=== PATIENT | male | born 1970 | race Caucasian/White ===

== ENCOUNTER 2023-04-01 21:57 | Outpatient (REF) | payer BC, SELFPAY ==
[2023-04-03 11:20] LABS: Lyme Ab w Rflx to Lyme Confirm Negative (Negative)
[2023-04-05 17:58] LABS: Anaplasma phagocytophilum Negative (Negative); B. miyamotoi PCR Negative (Negative); Babesia divergens/MO-1 Negative (Negative); Babesia duncani Negative (Negative); Babesia microti Negative (Negative); Ehrlichia chaffeensis Negative (Negative); Ehrlichia ewingii/canis Negative (Negative); Ehrlichia muris eauclairensis Negative (Negative)
== END 2023-04-01 21:58 | disposition home or self-care (01) ==
LOC: LBN 21:57
PROVIDERS: PCP Family Medicine; Visit Provider Physician Assistant Medical
DX: M25.50 Pain in unspecified joint (principal)
CPT/HCPCS: 87798; 86618

== ENCOUNTER 2023-07-02 16:14 | Outpatient (REF) | payer BC, SELFPAY ==
[2023-07-02 16:52] LABS: HCT 46.4 % (40.0-50.0); HGB 14.9 g/dL (13.5-17.5); MCHC 32.1 % (32.0-36.0); MCV 90 fL (80-95); Platelet Count 264 10^3/uL (130-400); RBC 5.13 10^6/uL (4.36-5.78); RDW 13.2 % (11.8-14.1); RDW-SD 43.8 fL; WBC 6.08 10^3/uL (4.4-10.8)
[2023-07-02 18:10] LABS: ALT 61 U/L (16-63); AST 31 U/L (15-37); Albumin 4.2 g/dL (3.4-5.0); Alkaline Phosphatase 73 U/L (46-116); Anion Gap 10.2 mmol/L (3-11); BUN 19 mg/dL (7-18); Bilirubin, Total 0.6 mg/dL (0.2-1.0); CO2 26.8 mmol/L (21.0-32.0); CREATININE 0.9 mg/dL (0.70-1.30); Calcium 9.6 mg/dL (8.5-10.1); Calculated LDL 129 mg/dL (<100); Chloride 104 mmol/L (98-107); Cholesterol 199 mg/dL (<200); Estimated GFR 102.12 (mL/min/1.73m2); Glucose 95 mg/dL (74-106); HDL Cholesterol 60 mg/dL (40-60); Potassium 4.9 mmol/L (3.5-5.1); Sodium 141 mmol/L (136-145); TSH (W/Ref FT4) 2.15 uIU/mL (0.36-3.74); Total Protein 7.8 g/dL (6.4-8.2); Triglyceride 54 mg/dL (<150)
== END 2023-07-02 16:15 | disposition home or self-care (01) ==
LOC: NCHCN 16:14
PROVIDERS: PCP Family Medicine; Visit Provider Family Medicine
DX: Z00.00 Encounter for general adult medical examination without abnormal findings (principal); E78.5 Hyperlipidemia, unspecified; R03.0 Elevated blood-pressure reading, without diagnosis of hypertension; F52.21 Male erectile disorder
CPT/HCPCS: 80053; 80061; 85027; 84443

== ENCOUNTER 2023-10-29 10:19 | Outpatient (REF) | payer BC, SELFPAY ==
[2023-10-29 15:17] LABS: Anion Gap 8.7 mmol/L (3-11); BUN 26 mg/dL (7-18); CO2 31.3 mmol/L (21.0-32.0); CREATININE 1.1 mg/dL (0.70-1.30); Calcium 10.4 mg/dL (8.5-10.1); Chloride 102 mmol/L (98-107); Estimated GFR 79.77 (mL/min/1.73m2); Glucose 128 mg/dL (74-106); Potassium 4.4 mmol/L (3.5-5.1); Sodium 142 mmol/L (136-145)
[2023-11-04 16:43] LABS: Testosterone, Free 7.73 ng/dL (4.06-15.6); Testosterone, Total 234 ng/dL (240-950)
== END 2023-10-29 10:20 | disposition home or self-care (01) ==
LOC: NCHCN 10:19
PROVIDERS: PCP Family Medicine; Visit Provider Family Medicine
DX: I10 Essential (primary) hypertension (principal); F52.21 Male erectile disorder
CPT/HCPCS: 80048; 84402; 84403

== ENCOUNTER 2024-03-03 09:24 | Outpatient (REF) | payer BC, SELFPAY ==
[2024-03-03 14:48] LABS: Abs Immature Grans 0.03 10^3/uL (0.0-0.06); Absolute Basophil Count 0.07 10^3/uL (0.0-0.2); Absolute Eosinophil Count 0.34 10^3/uL (0.0-0.7); Absolute Lymphocyte Count 2.78 10^3/uL (1.2-3.4); Absolute Monocyte Count 0.73 10^3/uL (0.1-0.8); Absolute Neutrophil Count 5.41 10^3/uL (1.2-6.7); Basophils % 0.7 %; Eosinophils % 3.6 %; HCT 47.6 % (40.0-50.0); HGB 15.9 g/dL (13.5-17.5); Immature Grans % 0.3 %; Lymphocytes % 29.7 %; MCH 29.3 pg (27.0-33.0); MCHC 33.4 % (32.0-36.0); MCV 88 fL (80-95); MPV 10.8 fL (8.0-11.0); Monocytes % 7.8 %; Neutrophils % 57.9 %; Platelet Count 259 10^3/uL (130-400); RBC 5.43 10^6/uL (4.36-5.78); RDW 12.8 % (11.8-14.1); RDW-SD 41.2 fL; WBC 9.36 10^3/uL (4.4-10.8)
[2024-03-03 14:57] LABS: Anion Gap 11.8 mmol/L (3-11); BUN 18 mg/dL (7-18); CO2 27.2 mmol/L (21.0-32.0); Calcium 9.1 mg/dL (8.5-10.1); Chloride 103 mmol/L (98-107); Estimated GFR 89.44 (mL/min/1.73m2); Glucose 80 mg/dL (74-106); Potassium 4.1 mmol/L (3.5-5.1); Sodium 142 mmol/L (136-145); Uric Acid 8.2 mg/dL (3.5-7.2)
== END 2024-03-03 09:25 | disposition home or self-care (01) ==
LOC: NCHCN 09:24
PROVIDERS: PCP Family Medicine; Visit Provider Family Medicine
DX: M10.9 Gout, unspecified (principal)
CPT/HCPCS: 80048; 84550; 85025

== ENCOUNTER 2024-06-16 15:57 | Outpatient (REF) | payer BC, SELFPAY ==
[2024-06-16 15:15] LABS: ALT 82 U/L (16-63); AST 36 U/L (15-37); Alkaline Phosphatase 62 U/L (46-116); Anion Gap 7.6 mmol/L (3-11); BUN 17 mg/dL (7-18); Bilirubin, Total 0.55 mg/dL (0.2-1.0); CO2 28.4 mmol/L (21.0-32.0); CREATININE 0.9 mg/dL (0.70-1.30); Calculated LDL 120 mg/dL (<100); Chloride 104 mmol/L (98-107); Cholesterol 192 mg/dL (<200); Estimated GFR 101.49 (mL/min/1.73m2); Glucose 88 mg/dL (74-106); HDL Cholesterol 50 mg/dL (40-60); Potassium 4.7 mmol/L (3.5-5.1); Sodium 140 mmol/L (136-145); Total Protein 7.5 g/dL (6.4-8.2); Triglyceride 113 mg/dL (<150); Vitamin B12 430 pg/mL (193-986)
[2024-06-16 15:32] LABS: Uric Acid 5.5 mg/dL (3.5-7.2)
[2024-06-16 16:02] LABS: Folate > 20.0 ng/mL (8.6-20.0)
== END 2024-06-16 15:58 | disposition home or self-care (01) ==
LOC: NCHCN 15:57
PROVIDERS: PCP Family Medicine; Visit Provider Family Medicine
DX: I10 Essential (primary) hypertension (principal); E78.5 Hyperlipidemia, unspecified
CPT/HCPCS: 80053; 80061; 82607; 82746; 84550

== ENCOUNTER 2025-06-21 15:31 | Outpatient (REF) | payer BC, SELFPAY ==
[2025-06-21 18:13] LABS: Abs Immature Grans 0.03 10^3/uL (0.0-0.06); HCT 44.2 % (40.0-50.0); HGB 14.4 g/dL (13.5-17.5); Immature Grans % 0.4 %; MCH 28.7 pg (27.0-33.0); MCHC 32.6 % (32.0-36.0); MCV 88 fL (80-95); MPV 11.1 fL (8.0-11.0); Platelet Count 247 10^3/uL (130-400); RBC 5.02 10^6/uL (4.36-5.78); RDW 13.1 % (11.8-14.1); RDW-SD 41.9 fL; WBC 7.43 10^3/uL (4.4-10.8)
[2025-06-21 18:37] LABS: ALT 84 U/L (16-63); AST 44 U/L (15-37); Albumin 4.0 g/dL (3.4-5.0); Alkaline Phosphatase 100 U/L (46-116); Anion Gap 10.6 mmol/L (3-11); BUN 20 mg/dL (7-18); Bilirubin, Total 0.5 mg/dL (0.2-1.0); CO2 24.4 mmol/L (21.0-32.0); Calcium 9.1 mg/dL (8.5-10.1); Calculated LDL 121 mg/dL (<100); Chloride 104 mmol/L (98-107); Cholesterol 193 mg/dL (<200); Estimated GFR 100.86 (mL/min/1.73m2); Glucose 96 mg/dL (74-106); HDL Cholesterol 51 mg/dL (>or=40); Potassium 4.5 mmol/L (3.5-5.1); Sodium 139 mmol/L (136-145); TSH (W/Ref FT4) 2.20 uIU/mL (0.36-3.74); Total Protein 7.3 g/dL (6.4-8.2); Triglyceride 108 mg/dL (<150)
[2025-06-22 09:35] LABS: Hepatitis C Ab w Rflx HCV PCR Negative (Negative)
[2025-06-22 10:02] LABS: HIV-1/2 Ag & Ab Screen Negative (Negative)
[2025-06-27 19:29] LABS: Testosterone, Free 51.4 pg/mL (35.0-155.0)
== END 2025-06-21 15:32 | disposition home or self-care (01) ==
LOC: NCHCN 15:31
PROVIDERS: PCP Family Medicine; Visit Provider Family Medicine
DX: F52.21 Male erectile disorder (principal); I10 Essential (primary) hypertension; E78.5 Hyperlipidemia, unspecified
CPT/HCPCS: 80053; 80061; 84402; 84403; 86803; 87389; 84443; 85025